=== PATIENT | male | born 1995 | race Asian ===

== ENCOUNTER 2017-07-22 12:36 | Emergency (ER) | payer SELFPAY ==
[~2017-07-22] VITALS: Ht 167.6 cm; Wt 68.0 kg
[2017-07-22] MEDS ORDERED: IV NORMAL SALINE 1000ML BAG 1,000 ML IV ONE (13:15)
[2017-07-22] MEDS ORDERED: ONDANSETRON PF 4 MG/2 ML VIAL. IV ONE (13:15)
[2017-07-22] MEDS ORDERED: KETOROLAC 30 MG/ML INJ. IV ONE (13:15)
[2017-07-22 13:28] LABS: BASO % 0 % (0-3); EOS % 3 % (0-3); HEMATOCRIT 48.2 % (39.0-53.0); HEMOGLOBIN 15.5 g/dL (13.0-17.5); LYMPH # 1.5 x10^3/uL (1.0-4.8); LYMPH % 14 % (24-48); MEAN CORPUSCULAR HEMOGLOBIN 24 pg (25-35); MEAN CORPUSCULAR HGB CONC 32 g/dL (31-37); MEAN CORPUSCULAR VOLUME 73 fL (79-100); MONO % 4 % (0-9); NEUT % 79 % (31-73); PLATELET COUNT 175 x10^3/uL (140-400); RED BLOOD COUNT 6.56 x10^6/uL (4.30-5.70); RED CELL DISTRIBUTION WIDTH 14.3 % (11.5-14.5); WHITE BLOOD COUNT 10.6 x10^3/uL (4.0-11.0)
[2017-07-22 13:30] LABS: BILIRUBIN,URINE NEGATIVE (NEG); GLUCOSE,URINE NEGATIVE (NEG); NITRITE,URINE NEGATIVE (NEG); PH,URINE 7.5; PROTEIN,URINE NEGATIVE (NEG-TRACE)
[2017-07-22 13:40] LABS: CALCIUM 9.2 mg/dL (8.5-10.1); CREATININE 0.9 mg/dL (0.7-1.3); GFR 106.5; SQUAMOUS EPITHELIAL CELL,UR FEW /LPF
[2017-07-22 13:41] LABS: RBC,URINE RARE /HPF (0-2); WBC,URINE RARE /HPF (0-4)
[2017-07-22 13:42] LABS: BACTERIA,URINE 0 /HPF (0-FEW)
[2017-07-22 13:45] LABS: ALBUMIN 4.7 g/dL (3.4-5.0); ALBUMIN/GLOBULIN RATIO 1.3 (1.0-1.7); TOTAL BILIRUBIN 0.6 mg/dL (0.2-1.0); TOTAL PROTEIN 8.3 g/dL (6.4-8.2)
--- NOTE | 2017-07-22 15:26 | RAD ---
Indication: Right upper quadrant pain. FINDINGS: The liver shows no evidence of a focal mass. The gallbladder shows no evidence of gallstones or sludge. No wall thickening or pericholecystic fluid is seen. No biliary dilatation is identified. The right kidney is normal in size without evidence of hydronephrosis, renal calculi or focal mass. The pancreas was poorly visualized. IMPRESSION: Unremarkable gallbladder ultrasound.
[2017-07-22] MEDS ORDERED: ONDA4TAB10 SL (16:28)
--- NOTE | 2017-07-22 16:28 | PHYS DOC ---
Past Medical History Past Medical History: No Pertinent History Past Surgical History: No Surgical History Additional Information: 1-2 CIGARETTES PER DAY Alcohol Use: Occasionally Drug Use: None Adult General Chief Complaint Chief Complaint: ABDOMINAL PAIN HPI HPI Patient is a 21 year old male who presents with abdominal pain. The patient reports 3 day history of right upper quadrant & epigastric pain associated with 3 episodes of vomiting. He denies fevers/chills, hematemesis, diarrhea, constipation, hematochezia, melena, dysuria, hematuria. Denies previous history of similar symptoms. Pain is constant. Denies past medical history or history of abdominal surgeries. Reports occasional social drinking of alcohol, none recently. Review of Systems Review of Systems Constitutional: Denies fever or chills HENT: Denies nasal congestion or sore throat Respiratory: Denies cough or shortness of breath Cardiovascular: Denies chest pain or edema GI: Reports abdominal pain, nausea, vomiting, denies bloody stools or diarrhea : Denies dysuria or hematuria Musculoskeletal: Denies back pain or joint pain Integument: Denies rash or skin lesions Neurologic: Denies headache, focal weakness or sensory changes All other systems were reviewed and found to be within normal limits, except as documented in this note. Current Medications Current Medications Current Medications Medications (Trade) Dose Ordered Sig/Alysa Start Time Stop Time Status Last Admin Dose Admin Ketorolac Tromethamine (Toradol) 30 mg 1X ONCE 07/22/17 13:15 07/22/17 13:39 DC 07/22/17 13:43 30 MG Ondansetron HCl (Zofran) 4 mg 1X ONCE 07/22/17 13:15 07/22/17 13:39 DC 07/22/17 13:43 4 MG Sodium Chloride 1,000 ml @ 1,000 mls/hr 1X ONCE 07/22/17 13:15 07/22/17 14:14 DC 07/22/17 13:43 1,000 MLS/HR Allergies Allergies Allergies Coded Allergies Type Severity Reaction Last Updated Verified No Known Drug Allergies 07/22/17 No Physical Exam Physical Exam Constitutional: Well developed, well nourished, no acute distress, non-toxic appearance. HENT: Normocephalic, atraumatic, bilateral external ears normal, oropharynx moist, nose normal. Eyes: conjunctiva normal, no discharge. Neck: supple, no stridor. Cardiovascular: RRR, no murmurs, no edema. Lungs & Thorax: LCTAB, no wheezing, no respiratory distress. Abdomen: soft, right upper quadrant & epigastric tenderness without rebound/ guarding, no masses or pulsatile masses, no rebound/guarding, nondistended. Skin: Warm, dry, no erythema, no rash. Back: No CVA tenderness. Extremities: No tenderness, no edema. Neurologic: Alert and oriented X 3, no focal deficits noted. Psychologic: Affect normal, judgement normal, mood normal. Current Patient Data Vital Signs Vital Signs Date Time Temp Pulse Resp B/P (MAP) Pulse Ox O2 Delivery O2 Flow Rate FiO2 07/22/17 16:30 66 23 107/51 (69) 98 Room Air 07/22/17 12:45 97.9 97.9 Lab Values Laboratory Tests Test 07/22/17 13:15 White Blood Count 10.6 x10^3/uL (4.0-11.0) Red Blood Count 6.56 x10^6/uL (4.30-5.70) H Hemoglobin 15.5 g/dL (13.0-17.5) Hematocrit 48.2 % (39.0-53.0) Mean Corpuscular Volume 73 fL (79-100) L Mean Corpuscular Hemoglobin 24 pg (25-35) L Mean Corpuscular Hemoglobin Concent 32 g/dL (31-37) Red Cell Distribution Width 14.3 % (11.5-14.5) Platelet Count 175 x10^3/uL (140-400) Neutrophils (%) (Auto) 79 % (31-73) H Lymphocytes (%) (Auto) 14 % (24-48) L Monocytes (%) (Auto) 4 % (0-9) Eosinophils (%) (Auto) 3 % (0-3) Basophils (%) (Auto) 0 % (0-3) Neutrophils # (Auto) 8.4 x10^3uL (1.8-7.7) H Lymphocytes # (Auto) 1.5 x10^3/uL (1.0-4.8) Monocytes # (Auto) 0.4 x10^3/uL (0.0-1.1) Eosinophils # (Auto) 0.3 x10^3/uL (0.0-0.7) Basophils # (Auto) 0.0 x10^3/uL (0.0-0.2) Urine Collection Type Void Urine Color Yellow Urine Clarity Clear Urine pH 7.5 Urine Specific [place] 1.025 Urine Protein Negative mg/dL (NEG-TRACE) Urine Glucose (UA) Negative mg/dL (NEG) Urine Ketones (Stick) 15 mg/dL (NEG) Urine Blood Negative (NEG) Urine Nitrite Negative (NEG) Urine Bilirubin Negative (NEG) Urine Urobilinogen Dipstick 1.0 mg/dL (0.2 mg/dL) Urine Leukocyte Esterase Negative (NEG) Urine RBC Rare /HPF (0-2) Urine WBC Rare /HPF (0-4) Urine Squamous Epithelial Cells Few /LPF Urine Bacteria 0 /HPF (0-FEW) Urine Mucus Mod /LPF Sodium Level 146 mmol/L (136-145) H Potassium Level 4.0 mmol/L (3.5-5.1) Chloride Level 105 mmol/L (98-107) Carbon Dioxide Level 30 mmol/L (21-32) Anion Gap 11 (6-14) Blood Urea Nitrogen 18 mg/dL (8-26) Creatinine 0.9 mg/dL (0.7-1.3) Estimated GFR (Cockcroft-Gault) 106.5 BUN/Creatinine Ratio 20 (6-20) Glucose Level 106 mg/dL (70-99) H Calcium Level 9.2 mg/dL (8.5-10.1) Total Bilirubin 0.6 mg/dL (0.2-1.0) Aspartate Amino Transferase (AST) 21 U/L (15-37) Alanine Aminotransferase (ALT) 32 U/L (16-63) Alkaline Phosphatase 91 U/L (46-116) Total Protein 8.3 g/dL (6.4-8.2) H Albumin 4.7 g/dL (3.4-5.0) Albumin/Globulin Ratio 1.3 (1.0-1.7) Lipase 120 U/L (73-393) Laboratory Tests 07/22/17 13:15 Laboratory Tests 07/22/17 13:15 EKG EKG [] Radiology/Procedures Radiology/Procedures PROCEDURE: ABDOMEN LTD Indication: Right upper quadrant pain. FINDINGS: The liver shows no evidence of a focal mass. The gallbladder shows no evidence of gallstones or sludge. No wall thickening or pericholecystic fluid is seen. No biliary dilatation is identified. The right kidney is normal in size without evidence of hydronephrosis, renal calculi or focal mass. The pancreas was poorly visualized. IMPRESSION: Unremarkable gallbladder ultrasound. DICTATED and SIGNED BY: VERA BONILLA MD DATE: 07/22/17 1457[] Course & Med Decision Making Course & Med Decision Making Pertinent Labs and Imaging studies reviewed. (See chart for details) The patient presents with abdominal pain & vomiting. He is well appearing with stable vitals, afebrile, appears well hydrated. Gave IV fluids, zofran, pain medication. Obtained labs, UA, US of the abdomen. No significant abnormality identified. He felt better after treatment. Recommend supportive care for likely viral gastroenteritis. Rest, hydration with sips of clear liquid, zofran as needed for nausea, avoid EtOH. Follow up with primary care physician if not improving in 2-3 days. Come back for high fever, severe pain, uncontrolled vomiting, any otherwise worsening condition. Discharged home in stable condition. [] Dragon Disclaimer Dragon Disclaimer This electronic medical record was generated, in whole or in part, using a voice recognition dictation system. Departure Departure Impression: Primary Impression: Abdominal pain Disposition: HOME, SELF-CARE Condition: STABLE Referrals: NO PCP (PCP) Charity ABDUL MD Patient Instructions: Abdominal Pain, [id number], Nausea and Vomiting, Easy- to-Read Additional Instructions: You were seen in the emergency department today for abdominal pain. Tests here did not show serious cause of symptoms. Please rest, drink small sips of clear liquids to stay hydrated, use Zofran for nausea. Follow-up with primary care physician if not improving within 2-3 days. You can make an appointment with Dr. Abdul if you do not have your own doctor. Return to the emergency department for high fever, severe pain, uncontrolled vomiting, any otherwise worsening condition. Scripts Ondansetron (ZOFRAN ODT) 4 Mg Tab.rapdis 1 TAB SL Q8HRS, #10 TAB Prov: SINDHU ANNE MD 07/22/17 Problem Qualifiers Primary Impression: Abdominal pain Abdominal location: upper abdomen, unspecified Qualified Codes: R10.10 - Upper abdominal pain, unspecified SINDHU ANNE MD Jul 22, 2017 16:28
[2017-07-22 16:30] VITALS: BP 107/51
== END 2017-07-22 16:42 | disposition home or self-care (01) ==
LOC: ER 12:36
DX: R10.11 Right upper quadrant pain (principal); R10.13 Epigastric pain; R11.2 Nausea with vomiting, unspecified; F17.210 Nicotine dependence, cigarettes, uncomplicated
CPT/HCPCS: 36415; 76705; 80053; 81001; 83690; 85025; 96361; 96374; 96375; 99285; J1885; J2405; J7030